=== PATIENT | male | born 2000 | race American Indian/Alaskan Native ===

== ENCOUNTER 2020-04-13 16:28 | Emergency (ER) | payer SELFPAY ==
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
[2020-04-13 17:26] VITALS: BP 127/66
== END 2020-04-13 18:08 | disposition home or self-care (01) ==
LOC: ED 16:28
DX: R46.89 Other symptoms and signs involving appearance and behavior (principal)